=== PATIENT | male | born 1995 | race Caucasian/White ===

== ENCOUNTER 2020-02-22 05:53 | Emergency (ER) | payer OTHER ==
[~2020-02-22] VITALS: Ht 172.7 cm; Wt 61.2 kg
[2020-02-22 05:57] VITALS: BP 128/74
[2020-02-22] MEDS ORDERED: SORIATANE10 MG PO (06:02)
[2020-02-22] MEDS ORDERED: NAPROSYN500 MG PO (06:33)
[2020-02-22] MEDS ORDERED: CLEOCIN HCL300 MG PO (06:33)
== END 2020-02-22 06:41 | disposition home or self-care (01) ==
LOC: ER 05:53
DX: K08.89 Other specified disorders of teeth and supporting structures (principal); R51.9 Headache, unspecified; F17.210 Nicotine dependence, cigarettes, uncomplicated; Z90.49 Acquired absence of other specified parts of digestive tract; Z90.89 Acquired absence of other organs; Z79.899 Other long term (current) drug therapy; Z88.1 Allergy status to other antibiotic agents; Z88.0 Allergy status to penicillin